=== PATIENT | male | born 1955 | race African-American/Black ===

== ENCOUNTER 2019-09-12 11:58 | Inpatient (IN) | payer OTHER ==
[~2019-09-12] VITALS: Ht 175.3 cm; Wt 110.7 kg
[2019-09-12 12:12] VITALS: Ht 175.3 cm; Wt 110.7 kg
[2019-09-12 12:52] LABS: BASOPHIL % 0.2 % (0-2); PLATELET COUNT 213 x10^3mcL (130-400)
[2019-09-12 12:56] LABS: rbc morphology (normal/abnorm) ABNORMAL (NORMAL)
[2019-09-12 13:04] LABS: CALCIUM 7.9 mg/dL (8.5-10.1); CARBON DIOXIDE 29.6 mmol/L (21-32); CHLORIDE SERUM 107 mmol/L (98-107); CREATININE SERUM 1.1 mg/dL (0.7-1.3); GFR1 > 60 mL/min; GLUCOSE SERUM 81 mg/dL (74-106); POTASSIUM SERUM 3.4 mmol/L (3.5-5.1); SODIUM SERUM 143 mmol/L (136-145)
[2019-09-12 13:08] LABS: ALKALINE PHOSPHATASE 36 U/L (46-116); ALT/SGPT 18 U/L (16-63); AST/SGOT 17 U/L (15-37); BILIRUBIN TOTAL 0.14 mg/dL (0.20-1.00); TOTAL PROTEIN, SERUM 6.2 g/dL (6.4-8.2)
[2019-09-12 13:16] LABS: ALBUMIN 3.2 g/dL (3.4-5.0)
[2019-09-12 14:22] LABS: TOTAL IRON BINDING CAPACITY 314 ug/dL (250-450)
[2019-09-12 14:26] LABS: IRON 15 ug/dL (65-170)
[2019-09-12] MEDS ORDERED: ALLOPURINOL100 MG PO (14:51)
[2019-09-12 15:05] LABS: BASOPHIL % 0.3 % (0-2); PLATELET COUNT 209 x10^3mcL (130-400)
[2019-09-12 15:12] LABS: RED CELL DISTRIBUTION WIDTH 16.8 % (11.5-14.5)
[2019-09-12 15:25] LABS: rbc morphology (normal/abnorm) ABNORMAL (NORMAL)
[2019-09-12] MEDS ORDERED: RAMIPRIL2.5 MG PO (15:30)
[2019-09-12] MEDS ORDERED: HYDROCHLOROTH12.5 M3 PO (15:30)
[2019-09-12] MEDS ORDERED: TOPAMAX25 MG PO (15:31)
[2019-09-12 16:53] VITALS: BP 94/63
[2019-09-12 18:57] LABS: BASOPHIL % 0.4 % (0-2); PLATELET COUNT 181 x10^3mcL (130-400)
[2019-09-12 19:17] LABS: RED CELL DISTRIBUTION WIDTH 16.6 % (11.5-14.5)
[2019-09-12 21:00] VITALS: BP 110/71
[2019-09-12 21:34] VITALS: BP 99/61
[2019-09-12 21:50] VITALS: BP 110/71
[2019-09-12 22:19] LABS: BASOPHIL % 0.1 % (0-2); PLATELET COUNT 199 x10^3mcL (130-400)
[2019-09-12 22:28] LABS: RED CELL DISTRIBUTION WIDTH 16.3 % (11.5-14.5)
[2019-09-12 22:35] LABS: rbc morphology (normal/abnorm) ABNORMAL (NORMAL)
[2019-09-13 03:52] LABS: BASOPHIL % 0.9 % (0-2); PLATELET COUNT 206 x10^3mcL (130-400)
[2019-09-13 03:55] LABS: RED CELL DISTRIBUTION WIDTH 16.2 % (11.5-14.5)
[2019-09-13 06:02] VITALS: BP 114/72
[2019-09-13 06:50] LABS: BASOPHIL % 0.1 % (0-2); PLATELET COUNT 177 x10^3mcL (130-400)
[2019-09-13 06:55] LABS: CALCIUM 7.7 mg/dL (8.5-10.1); CARBON DIOXIDE 30.6 mmol/L (21-32); CHLORIDE SERUM 110 mmol/L (98-107); GFR1 > 60 mL/min; GLUCOSE SERUM 90 mg/dL (74-106); MAGNESIUM 2.2 mg/dL (1.8-2.4); PHOSPHOROUS 3.1 mg/dL (2.5-4.9); POTASSIUM SERUM 3.7 mmol/L (3.5-5.1); SODIUM SERUM 145 mmol/L (136-145)
[2019-09-13 09:23] LABS: rbc morphology (normal/abnorm) ABNORMAL (NORMAL)
[2019-09-13 16:42] VITALS: BP 111/87
[2019-09-13 20:14] LABS: PLATELET COUNT 194 x10^3mcL (130-400)
[2019-09-13 20:15] VITALS: BP 104/70
[2019-09-13 20:21] LABS: BASOPHIL % 0 % (0-2); RED CELL DISTRIBUTION WIDTH 16.7 % (11.5-14.5)
[2019-09-14 05:57] VITALS: BP 120/73
[2019-09-14 06:38] LABS: CALCIUM 8.1 mg/dL (8.5-10.1); CARBON DIOXIDE 26.6 mmol/L (21-32); CHLORIDE SERUM 108 mmol/L (98-107); CREATININE SERUM 1.2 mg/dL (0.7-1.3); GFR1 > 60 mL/min; GLUCOSE SERUM 96 mg/dL (74-106); MAGNESIUM 2.1 mg/dL (1.8-2.4); PHOSPHOROUS 3.3 mg/dL (2.5-4.9); POTASSIUM SERUM 4.1 mmol/L (3.5-5.1); SODIUM SERUM 142 mmol/L (136-145)
[2019-09-14 07:44] LABS: PLATELET COUNT 169 x10^3mcL (130-400)
[2019-09-14 08:32] LABS: RED CELL DISTRIBUTION WIDTH 16.6 % (11.5-14.5)
[2019-09-14 09:13] LABS: microscopic required? NO
[2019-09-14 09:21] LABS: urine erythrocyte NEGATIVE (NEGATIVE)
[2019-09-14 09:36] VITALS: BP 111/66
[2019-09-14 09:50] LABS: rbc morphology (normal/abnorm) ABNORMAL (NORMAL)
[2019-09-14 11:06] LABS: BAND NEUTROPHIL 0 % (0-10); BASOPHIL 0 % (0-2); MONOCYTE 7 % (0-7); SEGMENTED NEUTROPHILS 78 % (37-75)
[2019-09-14 11:07] LABS: PLATELET MORPHOLOGY PLATELETS NORMAL
[2019-09-14 16:45] VITALS: BP 101/62
[2019-09-14 20:36] VITALS: BP 104/64
[2019-09-14 21:02] LABS: BASOPHIL % 0.4 % (0-2); PLATELET COUNT 156 x10^3mcL (130-400)
[2019-09-14 21:06] LABS: RED CELL DISTRIBUTION WIDTH 17.1 % (11.5-14.5)
[2019-09-15 04:58] LABS: AMPHETAMINE QUAL UR NONE DETECTED (See below)
[2019-09-15 06:09] VITALS: BP 115/75
[2019-09-15 06:28] LABS: BASOPHIL % 0.4 % (0-2); PLATELET COUNT 162 x10^3mcL (130-400)
[2019-09-15 06:31] LABS: CALCIUM 8.3 mg/dL (8.5-10.1); CARBON DIOXIDE 27.5 mmol/L (21-32); CHLORIDE SERUM 109 mmol/L (98-107); CREATININE SERUM 1.2 mg/dL (0.7-1.3); GFR1 > 60 mL/min; GLUCOSE SERUM 86 mg/dL (74-106); MAGNESIUM 2.1 mg/dL (1.8-2.4); PHOSPHOROUS 3.4 mg/dL (2.5-4.9); POTASSIUM SERUM 3.9 mmol/L (3.5-5.1); SODIUM SERUM 144 mmol/L (136-145)
[2019-09-15 06:54] LABS: RED CELL DISTRIBUTION WIDTH 16.5 % (11.5-14.5)
[2019-09-15 09:35] VITALS: BP 115/65
[2019-09-15 17:25] VITALS: BP 105/69
[2019-09-15 21:16] VITALS: BP 102/68
[2019-09-16 05:33] VITALS: BP 132/80
[2019-09-16 06:53] LABS: CALCIUM 8.3 mg/dL (8.5-10.1); CARBON DIOXIDE 28.8 mmol/L (21-32); CHLORIDE SERUM 106 mmol/L (98-107); CREATININE SERUM 1.1 mg/dL (0.7-1.3); GFR1 > 60 mL/min; GLUCOSE SERUM 105 mg/dL (74-106); POTASSIUM SERUM 3.8 mmol/L (3.5-5.1); SODIUM SERUM 142 mmol/L (136-145)
[2019-09-16 06:58] LABS: BASOPHIL % 0.4 % (0-2); PLATELET COUNT 161 x10^3mcL (130-400)
[2019-09-16 09:05] VITALS: BP 134/82
[2019-09-16] MEDS ORDERED: FER300 PO (14:26)
[2019-09-16] MEDS ORDERED: ALT5 PO (14:28)
[2019-09-16] MEDS ORDERED: ANUHCS PR (14:28)
[2019-09-16 15:00] VITALS: BP 112/71
== END 2019-09-16 15:25 | disposition home or self-care (01) | DRG 347 ==
LOC: ED 11:58 → DU 13:58 → MU 13:58 → DU 15:28 → MU 09-13 18:04
PROVIDERS: Emergency Medicine; General Practice; Internal Medicine Gastroenterology; Surgery; ADMIT Internal Medicine
PROC: 30233N1 Transfusion of Nonautologous Red Blood Cells into Peripheral Vein, Percutaneous Approach (ICD-10-PCS; 2019-09-12)
PROC: 06BY0ZC Excision of Hemorrhoidal Plexus, Open Approach (ICD-10-PCS; principal; 2019-09-13 08:00)
PROC: 0DB78ZX Excision of Stomach, Pylorus, Via Natural or Artificial Opening Endoscopic, Diagnostic (ICD-10-PCS; 2019-09-13 08:00)
PROC: 0DB98ZZ Excision of Duodenum, Via Natural or Artificial Opening Endoscopic (ICD-10-PCS; 2019-09-13 08:00)
PROC: 0DJD8ZZ Inspection of Lower Intestinal Tract, Via Natural or Artificial Opening Endoscopic (ICD-10-PCS; 2019-09-13 08:00)
DX: K64.8 Other hemorrhoids (principal); R57.8 Other shock; E44.1 Mild protein-calorie malnutrition; K31.7 Polyp of stomach and duodenum; E87.6 Hypokalemia; E83.51 Hypocalcemia; D64.9 Anemia, unspecified; I10 Essential (primary) hypertension; M10.9 Gout, unspecified; G43.909 Migraine, unspecified, not intractable, without status migrainosus; Z68.36 Body mass index [BMI] 36.0-36.9, adult; Z82.3 Family history of stroke; Z79.899 Other long term (current) drug therapy
CPT/HCPCS: 43235; 45378; C9113; G0378; J0690; J1170; J1200; J1610; J2001; J2250; J2310; J2916; J3010; J3480; J3490; J7030; P9016; Q0092; Q0163

== ENCOUNTER 2019-11-21 09:07 | Emergency (ER) | payer OTHER ==
[~2019-11-21] VITALS: Ht 175.3 cm; Wt 101.6 kg
[~2019-11-21 09:07] MED LIST: ALLOPURINOL100 MG PO; ALT5 PO; ANUHCS PR; FER300 PO; HYDROCHLOROTH12.5 M3 PO; RAMIPRIL2.5 MG PO; TOPAMAX25 MG PO
[2019-11-21 09:11] VITALS: Ht 175.3 cm; Wt 101.6 kg
[2019-11-21 10:27] LABS: BASOPHIL % 1.1 % (0-2); PLATELET COUNT 150 x10^3mcL (130-400); RED CELL DISTRIBUTION WIDTH 16.1 % (11.5-14.5)
[2019-11-21 10:52] LABS: CALCIUM 9.2 mg/dL (8.5-10.1); CARBON DIOXIDE 31.1 mmol/L (21-32); CREATININE SERUM 1.4 mg/dL (0.7-1.3); POTASSIUM SERUM 3.5 mmol/L (3.5-5.1)
[2019-11-21 10:57] LABS: ALBUMIN 3.8 g/dL (3.4-5.0); BILIRUBIN TOTAL 0.23 mg/dL (0.20-1.00); TOTAL PROTEIN, SERUM 7.4 g/dL (6.4-8.2)
[2019-11-21 12:58] VITALS: BP 130/81
== END 2019-11-21 12:58 | disposition home or self-care (01) ==
LOC: ED 09:07
PROVIDERS: Emergency Medicine
DX: R19.7 Diarrhea, unspecified (principal); R10.9 Unspecified abdominal pain; D72.819 Decreased white blood cell count, unspecified; K64.8 Other hemorrhoids; I10 Essential (primary) hypertension; M10.9 Gout, unspecified; G43.909 Migraine, unspecified, not intractable, without status migrainosus
CPT/HCPCS: 36415; Q0092